=== PATIENT | male | born 1935 | race Caucasian/White ===

== ENCOUNTER → 2016-06-22 13:51 | Outpatient (CLI) | payer MEDICARE ==
[2011-05-13 08:13] VITALS: BMI 25.1
== END | disposition home or self-care (01) ==
LOC: D.CT 13:51
DX: M79.605 Pain in left leg (principal); M79.604 Pain in right leg; I10 Essential (primary) hypertension

== ENCOUNTER 2016-07-05 07:22 | Outpatient (CLI) | payer MEDICARE ==
[~2016-07-05] VITALS: Ht 182.9 cm; Wt 95.0 kg
[2016-07-05] MEDS ORDERED: COZAAR50 MG PO (08:08)
[2016-07-05] MEDS ORDERED: CATAPRES0.1 MG PO (08:08)
[2016-07-05] MEDS ORDERED: ATIVAN0.5 MG PO (08:09)
[2016-07-05] MEDS ORDERED: CORDARONE200 MG PO (08:10)
[2016-07-05 08:17] VITALS: BP 182/76; Ht 182.9 cm; Wt 95.0 kg
[2016-07-05 09:05] LABS: ANION GAP 13.5 mmol/L (8-16); BASOPHILS 0.6 % (0-2); CARBON DIOXIDE 27.9 mmol/L (21.0-32.0); CREATININE - SERUM 1.1 mg/dL (0.6-1.3); HEMATOCRIT 42.4 % (42.0-54.0); HEMOGLOBIN 13.8 g/dL (13.5-17.5); IMMATURE GRANULOCYTES 0.8 % (0-5); LYMPHOCYTES 19.9 % (15-50); MCH 30.9 pg (26.0-34.0); MCHC 32.5 g/dL (31.0-37.0); MCV 94.9 fL (80.0-100.0); MEAN PLATELET VOLUME 10.8 fL (7.4-10.4); MONOCYTES 8.7 % (2-11); PLATELET COUNT 150 10x3/uL (130-400); POTASSIUM - SERUM 4.4 mmol/L (3.5-5.1); RBC 4.47 10x6/uL (4.20-6.10); RDW 13.3 % (11.5-14.5)
[2016-07-05 09:10] LABS: APTT 31.7 SECONDS (22.8-39.4); INR 1.11 (0.85-1.17); PROTIME 14.1 SECONDS (11.6-15.0)
--- NOTE | 2016-07-05 12:12 | NUR ---
1210 ROUNDS BY RADIOLOGY NURSE FOR POST TEACHING.
== END 2016-07-05 15:00 | disposition home or self-care (01) ==
LOC: D.OPS 07:22 → D.RAD 10:00 → D.OPS 15:00
PROVIDERS: Radiology Diagnostic Radiology
DX: C64.2 Malignant neoplasm of left kidney, except renal pelvis (principal)

== ENCOUNTER → 2016-08-11 16:21 | Outpatient (CLI) | payer MEDICARE ==
[2016-07-05 08:17] VITALS: BMI 28.4
[~2016-08-11 16:21] MED LIST: ATIVAN0.5 MG PO; CATAPRES0.1 MG PO; CORDARONE200 MG PO; COZAAR50 MG PO
== END | disposition home or self-care (01) ==
LOC: D.US 16:21
DX: R10.9 Unspecified abdominal pain (principal)

== ENCOUNTER 2017-11-02 19:06 | Inpatient (IN) | payer MEDICARE ==
[~2017-11-02] VITALS: Ht 188 cm; Wt 64.6 kg
--- NOTE | ~2017-11-02 | EC ---
PATIENT:AMIRA MONTERROSO DATE OF SERVICE: 11/03/17 SEX: M MEDICAL RECORD: [id number] DATE OF : 33 LOCATION:[facility] AGE OF PATIENT: 82 ADMISSION DATE: 11/03/17 REFERRING PHYSICIAN: INTERPRETING PHYSICIAN: TOMA PHAM MD ECHOCARDIOGRAM REPORT ECHO CHARGES 4 ECHO COMPLETE Date: 11/03 CLINICAL DIAGNOSIS: CP, HTN, AFIB ECHOCARDIOGRAPHIC MEASUREMENTS (adult normal given) AC root (d.<3.7cm) 3.2 cm LV Septum d (<1.2 cm> 1.6 cm Valve Excursion 0.7 cm LV Septum (systole) 1.6 cm Left Atria (s.<4.0cm> 4.4 cm LVPW d(<1.2cm) 1.0 cm RV (d.<2.3cm) 3.5 cm LVPW (sytole) 1.1 cm LV diastole(<5.6CM) 5.2 cm MV E-F(>70mm/sec) cm LV systole 4.2 cm LVOT Diameter 2.1 cm MV exc.(>10mm) cm Est.ejection fraction (50-75%) % DOPPLER: LVIT cm/sec A 90 cm/sec E 101 cm/sec LA cm/sec RVSP 37.8 mmHg LVOT 103 cm/sec AOP1/2T m/s Asc. Ao 199 cm/sec RVOT 68 cm/sec RA cm/sec PA 83 cm/sec AV Gradient Peak 15.8 mmHg AV Mean 8.8 mmHg AV Area 2.3 cm MV Gradient Peak 7.7 mmHg MV Mean 2.6 mmHg MV Area cm COMMENTS: Manufacturing Recruiter: Grecia SLOANSO JAYCE Alpine Guide: 1 Dr. Pham TAPE# PACS Pericardial Effusion N DATE OF SERVICE: 11/03/2017 FINDINGS: 1. Left ventricular chamber size is within normal limits. Left ventricular systolic function is normal. Overall ejection fraction estimated 60%. 2. Left atrium is enlarged at 4.4 cm. Right atrium and right ventricular chamber sizes are as well mildly dilated. 3. Valvular structures have normal structure and motion. 4. Doppler interrogation reveals moderate mitral regurgitation, mild tricuspid regurgitation. No other valvular insufficiency or stenosis. Pulmonary systolic ECHOCARDIOGRAM REPORT [id number] AMIRA MONTERROSO pressure is estimated 38 mmHg. 5. No evidence of pericardial effusion or left ventricular thrombus. TRANSINT:[id number] Voice Confirmation ID: [id number] DOCUMENT ID: [id number] TOMA PHAM MD at 1806 CC: [id number] DICTATION DATE: 11/04/17 1053 [place] OPERATOR CORE SAND: 11/04/17 1204 ADM IN [facility] [address] [place] [address]
--- NOTE | ~2017-11-02 | CN ---
PATIENT NAME:AMIRA MONTERROSO MEDICAL RECORD: [id number] : 33 LOCATION:[facility] ADMIT DATE: 11/03/17 ACCOUNT: [id number] CONSULTING PHYSICIAN: TOMA JUNE MD REFERRING PHYSICIAN: GEOVANY GRAY MD DATE OF CONSULTATION: 11/03/2017 CARDIOLOGY CONSULTATION DIAGNOSES: 1. Preoperative evaluation. 2. Abnormal troponin. 3. Colitis. 4. Cholecystitis. HISTORY OF PRESENT ILLNESS: This is a gentleman who presents with a GI etiology pain. No chest pain, no cardiac history. His troponin is mildly elevated. His EKG has no ST-T changes. He has a history of hypertension, for which he is on losartan and a history of atrial fibrillation, for which he is on Cordarone. He has maintained sinus rhythm. PHYSICAL EXAMINATION: GENERAL APPEARANCE: Well-nourished, well-developed, appears stated age. Level of distress, comfortable. PSYCHIATRIC: Mental status, alert, normal affect. Orientation, oriented to time, place and person. EYES: Lids and conjunctiva, noninjected. No discharge, no pallor. ENT: Lips, teeth, gums, normal dentition. Oropharynx, no cyanosis, no pallor. NECK: Carotid arteries, bilateral normal upstroke, no bruits, no thrills. JUGULAR VEINS: No jugular venous pressure or distention. CERVICAL LYMPH NODES: Nontender, nonenlarged. THYROID: Not enlarged. Nontender. No nodules. LUNGS: Respiratory effort, unlabored. CHEST: Normal curvature. No thoracic deformity. No chest wall tenderness. Percussion, resonant. Auscultation, clear. No wheezes, no rales, no rhonchi. CARDIOVASCULAR: Precordial exam, nondisplaced. No heaves or pericardial thrills. Rate and rhythm, regular. Heart sounds, normal S1, normal S2. No S3, no gallop, no rub. Systolic murmur, not heard. Diastolic murmur, not heard. EXTREMITIES: No cyanosis, no edema. Peripheral pulses, full and equal in all extremities, except as noted. No bruits appreciated. ABDOMEN: Soft, nondistended. Normal aorta. No bruit. Nontender. No masses. Liver, nontender, no hepatomegaly. Spleen, nontender, no splenomegaly. MUSCULOSKELETAL: No joint tenderness. No joint swelling. No erythema. NEUROLOGICAL: Normal gait, normal strength, normal tone. SKIN: Warm and dry. OVERALL IMPRESSION: Minimally elevated troponin with no EKG changes, no cardiac symptomatology. Only history of atrial fibrillation, which he remains in sinus rhythm and history of hypertension, which is controlled on his current medications. At this time, his need for surgery is semi-emergent due to his symptomatology. No other cardiac workup treatment is necessary at this time, proceed with surgery. TRANSINT:[id number] Voice Confirmation ID: [id number] DOCUMENT ID: [id number] CONSULT REPORT [id number] AMIRA MONTERROSO, TOMA MRAMOLEJO at 1642 CC: [id number] DICTATION DATE: 11/03/17 1155 POULTRY FI[employer] SERVICE TECHNICIAN: 11/03/17 1219 ADM IN [facility] [id number] [place] [address]
[2017-11-02] MEDS ORDERED: SYNTHROID50 MCG PO (19:19)
[2017-11-02 19:31] LABS: BASOPHILS 0 % (0-2); EOSINOPHILS 0.1 % (0-7); HEMATOCRIT 34.2 % (42.0-54.0); HEMOGLOBIN 11.5 g/dL (13.5-17.5); IMMATURE GRANULOCYTES 0.5 % (0-5); LYMPHOCYTES 2.7 % (15-50); MCH 31.2 pg (26.0-34.0); MCHC 33.6 g/dL (31.0-37.0); MCV 92.7 fL (80.0-100.0); MONOCYTES 4.6 % (2-11); NEUTROPHILS 92.1 % (40-80); RBC 3.69 10x6/uL (4.20-6.10); RDW 13.4 % (11.5-14.5); WBC 7.8 10x3/uL (4.8-10.8)
[2017-11-02 19:43] LABS: PLATELET COUNT 118 10x3/uL (130-400)
[2017-11-02 19:48] LABS: ALBUMIN 2.8 g/dL (3.4-5.0); ALKALINE PHOSPHATASE 82 U/L (46-116); ALT (SGPT) 21 U/L (10-68); BILIRUBIN - TOTAL 1.17 mg/dL (0.2-1.3); CALC OSMOLALITY 279 mosm/kg (275-300); CALCIUM 8.2 mg/dL (8.5-10.1); CARBON DIOXIDE 23.4 mmol/L (21.0-32.0); CHLORIDE - SERUM 101 mmol/L (98-107); CREATININE - SERUM 1.6 mg/dL (0.6-1.3); POTASSIUM - SERUM 3.3 mmol/L (3.5-5.1); PROTEIN - SERUM 6.3 g/dL (6.4-8.2); SODIUM 134 mmol/L (136-145); UREA NITROGEN 35 mg/dL (7-18); eGFR NON AFRICAN AMERICAN 44 mL/min (90-120)
[2017-11-02 19:52] LABS: GLUCOSE 178 mg/dL (74-106)
[2017-11-02 20:03] LABS: CKMB 2.2 U/L (0.0-3.6); CREATINE KINASE 298 UL (21-232)
[2017-11-02 20:04] LABS: TROPONIN-I 1.337 ng/mL (0.000-0.060)
[2017-11-02 20:39] LABS: INR 1.45 (0.85-1.17); PROTIME 17.1 SECONDS (11.6-15.0)
[2017-11-02 20:40] LABS: APPEARANCE CLEAR (CLEAR); BILIRUBIN NEGATIVE (NEGATIVE); COLOR YELLOW (YELLOW); GLUCOSE NEGATIVE (NEGATIVE); KETONE NEGATIVE (NEGATIVE); NITRITE NEGATIVE (NEGATIVE); PROTEIN NEGATIVE (NEGATIVE); SPECIFIC GRAVITY 1.015 (1.005-1.020); UROBILINOGEN NORMAL (NORMAL)
[2017-11-02 21:23] VITALS: BP 99/50
[2017-11-02 22:54] VITALS: BP 117/51
[2017-11-02 23:07] VITALS: BP 111/53
[2017-11-03 02:57] VITALS: BP 143/72; BMI 25.4
[2017-11-03 10:24] LABS: BASOPHILS 0.2 % (0-2); EOSINOPHILS 0.2 % (0-7); HEMATOCRIT 31.8 % (42.0-54.0); HEMOGLOBIN 10.7 g/dL (13.5-17.5); IMMATURE GRANULOCYTES 0.4 % (0-5); LYMPHOCYTES 3.1 % (15-50); MCH 31.3 pg (26.0-34.0); MCHC 33.6 g/dL (31.0-37.0); MEAN PLATELET VOLUME 10.6 fL (7.4-10.4); MONOCYTES 10.5 % (2-11); NEUTROPHILS 85.6 % (40-80); PLATELET COUNT 109 10x3/uL (130-400); RBC 3.42 10x6/uL (4.20-6.10); RDW 13.6 % (11.5-14.5)
[2017-11-03 10:29] LABS: WBC 4.8 10x3/uL (4.8-10.8)
[2017-11-03 10:44] LABS: ALBUMIN 2.5 g/dL (3.4-5.0); ANION GAP 8.8 mmol/L (8-16); BILIRUBIN - TOTAL 0.57 mg/dL (0.2-1.3); CALCIUM 7.8 mg/dL (8.5-10.1); CARBON DIOXIDE 27.4 mmol/L (21.0-32.0); POTASSIUM - SERUM 3.2 mmol/L (3.5-5.1); PROTEIN - SERUM 5.9 g/dL (6.4-8.2)
[2017-11-03 10:45] LABS: CREATININE - SERUM 1.1 mg/dL (0.6-1.3)
[2017-11-03 12:36] LABS: CKMB 3.4 U/L (0.0-3.6)
[2017-11-03 12:37] LABS: CREATINE KINASE 531 UL (21-232); TROPONIN-I 0.409 ng/mL (0.000-0.060)
[2017-11-03 13:19] LABS: % SATURATION 11 % (15-55); IRON 19 ug/dl (35-150); TOTAL IRON BIND CAPACITY 170 ug/dl (260-445); UNSAT IRON BIND CAPACITY 151 ug/dl (150-375)
[2017-11-03 13:33] LABS: THYROID STIMULATING HORMONE 0.42 uIU/mL (0.36-3.74)
[2017-11-03 15:54] LABS: POTASSIUM - SERUM 3.5 mmol/L (3.5-5.1)
[2017-11-03 16:37] LABS: CKMB 4.1 U/L (0.0-3.6); CREATINE KINASE 509 UL (21-232)
[2017-11-03 16:39] LABS: TROPONIN-I 0.276 ng/mL (0.000-0.060)
[2017-11-03 21:00] VITALS: BP 155/63
[2017-11-03 23:16] LABS: CKMB 2.1 U/L (0.0-3.6); CREATINE KINASE 392 UL (21-232); TROPONIN-I 0.273 ng/mL (0.000-0.060)
[2017-11-04 04:00] VITALS: BP 123/64
[2017-11-04 06:22] LABS: BASOPHILS 0.2 % (0-2); EOSINOPHILS 0.2 % (0-7); HEMATOCRIT 31.5 % (42.0-54.0); HEMOGLOBIN 10.3 g/dL (13.5-17.5); IMMATURE GRANULOCYTES 0.9 % (0-5); LYMPHOCYTES 8.8 % (15-50); MCH 30.7 pg (26.0-34.0); MCHC 32.7 g/dL (31.0-37.0); MCV 93.8 fL (80.0-100.0); MEAN PLATELET VOLUME 10.6 fL (7.4-10.4); MONOCYTES 11.8 % (2-11); NEUTROPHILS 78.1 % (40-80); PLATELET COUNT 120 10x3/uL (130-400); RBC 3.36 10x6/uL (4.20-6.10); RDW 13.6 % (11.5-14.5); WBC 4.7 10x3/uL (4.8-10.8)
[2017-11-04 06:28] LABS: CALCIUM 7.6 mg/dL (8.5-10.1); CARBON DIOXIDE 26.5 mmol/L (21.0-32.0); CREATININE - SERUM 1.1 mg/dL (0.6-1.3); POTASSIUM - SERUM 3.5 mmol/L (3.5-5.1)
[2017-11-04 08:28] VITALS: BP 113/74
[2017-11-04 13:18] VITALS: BP 146/65
[2017-11-04 16:08] VITALS: BP 152/63
[2017-11-04 20:00] VITALS: BP 162/67
[2017-11-05] VITALS: BP 137/82
[2017-11-05 04:00] VITALS: BP 134/59
[2017-11-05 06:24] LABS: BASOPHILS 0 % (0-2); EOSINOPHILS 0 % (0-7); HEMATOCRIT 30.8 % (42.0-54.0); HEMOGLOBIN 10.2 g/dL (13.5-17.5); IMMATURE GRANULOCYTES 1.9 % (0-5); LYMPHOCYTES 5.8 % (15-50); MCH 30.4 pg (26.0-34.0); MCHC 33.1 g/dL (31.0-37.0); MCV 91.9 fL (80.0-100.0); MEAN PLATELET VOLUME 10.5 fL (7.4-10.4); MONOCYTES 9.1 % (2-11); NEUTROPHILS 83.2 % (40-80); PLATELET COUNT 130 10x3/uL (130-400); RBC 3.35 10x6/uL (4.20-6.10); RDW 13.5 % (11.5-14.5)
[2017-11-05 06:39] LABS: WBC 6.2 10x3/uL (4.8-10.8)
[2017-11-05 07:06] LABS: ALBUMIN 2.4 g/dL (3.4-5.0); ALKALINE PHOSPHATASE 65 U/L (46-116); BILIRUBIN - TOTAL 0.53 mg/dL (0.2-1.3); CALC OSMOLALITY 279 mosm/kg (275-300); CALCIUM 7.4 mg/dL (8.5-10.1); CARBON DIOXIDE 23.3 mmol/L (21.0-32.0); CHLORIDE - SERUM 104 mmol/L (98-107); GLUCOSE 148 mg/dL (74-106); POTASSIUM - SERUM 3.3 mmol/L (3.5-5.1); PROTEIN - SERUM 5.1 g/dL (6.4-8.2); SODIUM 137 mmol/L (136-145); UREA NITROGEN 20 mg/dL (7-18); eGFR NON AFRICAN AMERICAN 76 mL/min (90-120)
[2017-11-05 07:09] LABS: ALT (SGPT) 62 U/L (10-68)
[2017-11-05 07:59] VITALS: BP 148/64
[2017-11-05 16:05] VITALS: BP 120/45
[2017-11-05 20:56] VITALS: BP 146/58
[2017-11-06 00:46] VITALS: BP 140/66
[2017-11-06 04:55] VITALS: BP 168/75
[2017-11-06 05:01] LABS: BASOPHILS 0 % (0-2); EOSINOPHILS 0.2 % (0-7); HEMATOCRIT 31.5 % (42.0-54.0); HEMOGLOBIN 10.5 g/dL (13.5-17.5); IMMATURE GRANULOCYTES 2.3 % (0-5); MCH 30.6 pg (26.0-34.0); MCHC 33.3 g/dL (31.0-37.0); MCV 91.8 fL (80.0-100.0); MEAN PLATELET VOLUME 10.3 fL (7.4-10.4); MONOCYTES 11.9 % (2-11); NEUTROPHILS 78.6 % (40-80); PLATELET COUNT 135 10x3/uL (130-400); RBC 3.43 10x6/uL (4.20-6.10); RDW 13.8 % (11.5-14.5)
[2017-11-06 05:12] LABS: WBC 8.3 10x3/uL (4.8-10.8)
[2017-11-06 05:29] LABS: ALBUMIN 2.4 g/dL (3.4-5.0); ALKALINE PHOSPHATASE 64 U/L (46-116); ALT (SGPT) 64 U/L (10-68); BILIRUBIN - TOTAL 0.76 mg/dL (0.2-1.3); CALC OSMOLALITY 271 mosm/kg (275-300); CARBON DIOXIDE 26.2 mmol/L (21.0-32.0); CHLORIDE - SERUM 103 mmol/L (98-107); CREATININE - SERUM 0.9 mg/dL (0.6-1.3); GLUCOSE 109 mg/dL (74-106); PROTEIN - SERUM 5.9 g/dL (6.4-8.2); SODIUM 135 mmol/L (136-145); UREA NITROGEN 16 mg/dL (7-18); eGFR NON AFRICAN AMERICAN 85 mL/min (90-120)
[2017-11-06 05:30] LABS: POTASSIUM - SERUM 4.4 mmol/L (3.5-5.1)
[2017-11-06 08:49] VITALS: BP 162/69
[2017-11-06 20:26] VITALS: BP 142/50
[2017-11-07 04:49] VITALS: BP 166/74
[2017-11-07 05:02] LABS: BASOPHILS 0 % (0-2); EOSINOPHILS 0.5 % (0-7); HEMOGLOBIN 9.9 g/dL (13.5-17.5); IMMATURE GRANULOCYTES 1.6 % (0-5); LYMPHOCYTES 7.6 % (15-50); MCH 30.2 pg (26.0-34.0); MCV 91.5 fL (80.0-100.0); MEAN PLATELET VOLUME 10.4 fL (7.4-10.4); MONOCYTES 8.4 % (2-11); NEUTROPHILS 81.9 % (40-80); RBC 3.28 10x6/uL (4.20-6.10); RDW 13.7 % (11.5-14.5); WBC 8.1 10x3/uL (4.8-10.8)
[2017-11-07 05:05] LABS: INR 1.27 (0.85-1.17); PLATELET COUNT 167 10x3/uL (130-400); PROTIME 15.4 SECONDS (11.6-15.0)
[2017-11-07 05:11] LABS: ALBUMIN 2.3 g/dL (3.4-5.0); ALKALINE PHOSPHATASE 64 U/L (46-116); ALT (SGPT) 57 U/L (10-68); BILIRUBIN - TOTAL 0.65 mg/dL (0.2-1.3); CALC OSMOLALITY 282 mosm/kg (275-300); CALCIUM 7.8 mg/dL (8.5-10.1); CARBON DIOXIDE 27.6 mmol/L (21.0-32.0); CHLORIDE - SERUM 106 mmol/L (98-107); CREATININE - SERUM 0.8 mg/dL (0.6-1.3); GLUCOSE 96 mg/dL (74-106); PROTEIN - SERUM 5.6 g/dL (6.4-8.2); SODIUM 142 mmol/L (136-145); UREA NITROGEN 12 mg/dL (7-18); eGFR NON AFRICAN AMERICAN > 90 mL/min (90-120)
[2017-11-07 05:12] LABS: POTASSIUM - SERUM 3.1 mmol/L (3.5-5.1)
[2017-11-07 09:11] VITALS: BP 120/66
[2017-11-07 12:18] VITALS: BP 117/76
[2017-11-07 14:18] LABS: EHRLICHIA CHAFF IGG Negative (Neg:<1:64); EHRLICHIA CHAFF IGM Negative (Neg:<1:20); HGE IGG TITER Negative (Neg:<1:64); HGE IGM TITER Negative (Neg:<1:20)
[2017-11-07 18:53] VITALS: BP 90/62
[2017-11-07 23:44] VITALS: BP 164/67
[2017-11-08 02:54] VITALS: BP 184/84
[2017-11-08 05:12] LABS: BASOPHILS 0.1 % (0-2); EOSINOPHILS 0.4 % (0-7); HEMATOCRIT 29.8 % (42.0-54.0); HEMOGLOBIN 9.8 g/dL (13.5-17.5); IMMATURE GRANULOCYTES 1.6 % (0-5); LYMPHOCYTES 5.5 % (15-50); MCH 30.5 pg (26.0-34.0); MCHC 32.9 g/dL (31.0-37.0); MCV 92.8 fL (80.0-100.0); MONOCYTES 7.1 % (2-11); NEUTROPHILS 85.3 % (40-80); RBC 3.21 10x6/uL (4.20-6.10); RDW 13.8 % (11.5-14.5); WBC 10.1 10x3/uL (4.8-10.8)
[2017-11-08 05:13] LABS: PLATELET COUNT 202 10x3/uL (130-400)
[2017-11-08 05:20] LABS: GLUCOSE 92 mg/dL (74-106)
[2017-11-08 05:21] LABS: ALBUMIN 2.3 g/dL (3.4-5.0); ALKALINE PHOSPHATASE 71 U/L (46-116); ALT (SGPT) 53 U/L (10-68); BILIRUBIN - TOTAL 0.58 mg/dL (0.2-1.3); CALC OSMOLALITY 280 mosm/kg (275-300); CALCIUM 7.9 mg/dL (8.5-10.1); CARBON DIOXIDE 26.6 mmol/L (21.0-32.0); CHLORIDE - SERUM 105 mmol/L (98-107); CREATININE - SERUM 0.9 mg/dL (0.6-1.3); POTASSIUM - SERUM 3.6 mmol/L (3.5-5.1); PROTEIN - SERUM 5.5 g/dL (6.4-8.2); SODIUM 141 mmol/L (136-145); UREA NITROGEN 13 mg/dL (7-18); eGFR NON AFRICAN AMERICAN 85 mL/min (90-120)
[2017-11-08 08:32] VITALS: BP 153/48
[2017-11-08 11:03] VITALS: Ht 188 cm; Wt 64.6 kg
[2017-11-08 17:38] VITALS: BP 148/41
[2017-11-08 20:00] VITALS: BP 124/78
[2017-11-09] VITALS: BP 128/77
[2017-11-09 05:20] LABS: BASOPHILS 0.1 % (0-2); EOSINOPHILS 0.7 % (0-7); HEMATOCRIT 30.5 % (42.0-54.0); IMMATURE GRANULOCYTES 2.1 % (0-5); LYMPHOCYTES 6.6 % (15-50); MCH 30.4 pg (26.0-34.0); MCHC 32.8 g/dL (31.0-37.0); MCV 92.7 fL (80.0-100.0); MEAN PLATELET VOLUME 9.8 fL (7.4-10.4); MONOCYTES 7.3 % (2-11); NEUTROPHILS 83.2 % (40-80); PLATELET COUNT 235 10x3/uL (130-400); RBC 3.29 10x6/uL (4.20-6.10); WBC 9.6 10x3/uL (4.8-10.8)
[2017-11-09 05:51] LABS: ALBUMIN 2.4 g/dL (3.4-5.0); ALKALINE PHOSPHATASE 75 U/L (46-116); ALT (SGPT) 49 U/L (10-68); BILIRUBIN - TOTAL 0.67 mg/dL (0.2-1.3); CALC OSMOLALITY 278 mosm/kg (275-300); CALCIUM 8.3 mg/dL (8.5-10.1); CARBON DIOXIDE 25.9 mmol/L (21.0-32.0); CHLORIDE - SERUM 106 mmol/L (98-107); CREATININE - SERUM 0.8 mg/dL (0.6-1.3); GLUCOSE 89 mg/dL (74-106); POTASSIUM - SERUM 3.8 mmol/L (3.5-5.1); PROTEIN - SERUM 5.8 g/dL (6.4-8.2); SODIUM 141 mmol/L (136-145); UREA NITROGEN 11 mg/dL (7-18); eGFR NON AFRICAN AMERICAN > 90 mL/min (90-120)
[2017-11-09 09:33] VITALS: BP 121/75; BP 155/58
[2017-11-09 14:24] VITALS: BP 153/71
[2017-11-09 20:00] VITALS: BP 129/46
[2017-11-10 04:00] VITALS: BP 144/60
[2017-11-10 06:05] LABS: BASOPHILS 0.1 % (0-2); EOSINOPHILS 0 % (0-7); HEMATOCRIT 31.4 % (42.0-54.0); HEMOGLOBIN 10.1 g/dL (13.5-17.5); LYMPHOCYTES 3.1 % (15-50); MCH 30.2 pg (26.0-34.0); MCHC 32.2 g/dL (31.0-37.0); MEAN PLATELET VOLUME 9.8 fL (7.4-10.4); MONOCYTES 2.3 % (2-11); NEUTROPHILS 93.5 % (40-80); PLATELET COUNT 276 10x3/uL (130-400); RBC 3.34 10x6/uL (4.20-6.10)
[2017-11-10 06:15] LABS: WBC 18.7 10x3/uL (4.8-10.8)
[2017-11-10 06:23] LABS: ALBUMIN 2.3 g/dL (3.4-5.0); ALKALINE PHOSPHATASE 73 U/L (46-116); BILIRUBIN - DIRECT 0.18 mg/dL (0.00-0.30); BILIRUBIN - INDIRECT 0.51 mg/dL (0.00-1.00); BILIRUBIN - TOTAL 0.69 mg/dL (0.2-1.3); CALCIUM 8.1 mg/dL (8.5-10.1); CARBON DIOXIDE 27.2 mmol/L (21.0-32.0); CHLORIDE - SERUM 104 mmol/L (98-107); CREATININE - SERUM 0.9 mg/dL (0.6-1.3); MAGNESIUM - SERUM 2.3 mg/dL (1.8-2.4); POTASSIUM - SERUM 4.1 mmol/L (3.5-5.1); PROTEIN - SERUM 5.8 g/dL (6.4-8.2); SODIUM 138 mmol/L (136-145); eGFR NON AFRICAN AMERICAN 85 mL/min (90-120)
[2017-11-10 06:24] LABS: ALT (SGPT) 71 U/L (10-68); CALC OSMOLALITY 279 mosm/kg (275-300); GLUCOSE 155 mg/dL (74-106); UREA NITROGEN 16 mg/dL (7-18)
[2017-11-10 08:48] VITALS: BP 149/61
[2017-11-10 13:07] LABS: APPEARANCE CLEAR (CLEAR); BILIRUBIN NEGATIVE (NEGATIVE); COLOR YELLOW (YELLOW); GLUCOSE NEGATIVE (NEGATIVE); KETONE NEGATIVE (NEGATIVE); NITRITE NEGATIVE (NEGATIVE); PROTEIN NEGATIVE (NEGATIVE); SPECIFIC GRAVITY 1.005 (1.005-1.020); UROBILINOGEN NORMAL (NORMAL)
[2017-11-10 20:00] VITALS: BP 159/54
[2017-11-10 20:08] LABS: OVA + PARASITE EXAM Final report (())
[2017-11-11] VITALS: BP 164/70
[2017-11-11 04:00] VITALS: BP 145/62
[2017-11-11 08:37] VITALS: BP 167/67
[2017-11-11] MEDS ORDERED: HYDROCODON-ACE1 EAC7 PO (09:46)
[2017-11-11] MEDS ORDERED: LEVAQUIN500 MG PO (09:47)
[2017-11-11 11:55] LABS: BASOPHILS 0.1 % (0-2); EOSINOPHILS 0.3 % (0-7); HEMATOCRIT 33.2 % (42.0-54.0); HEMOGLOBIN 10.5 g/dL (13.5-17.5); IMMATURE GRANULOCYTES 1.7 % (0-5); LYMPHOCYTES 4.1 % (15-50); MCH 30.3 pg (26.0-34.0); MCHC 31.6 g/dL (31.0-37.0); MEAN PLATELET VOLUME 9.5 fL (7.4-10.4); NEUTROPHILS 86.8 % (40-80); PLATELET COUNT 285 10x3/uL (130-400); RBC 3.46 10x6/uL (4.20-6.10); RDW 14.2 % (11.5-14.5)
[2017-11-11 11:56] LABS: WBC 13.2 10x3/uL (4.8-10.8)
[2017-11-11] MEDS ORDERED: FLAGYL500 MG PO (13:06)
[2017-11-11] MEDS ORDERED: LEVAQUIN750 MG PO (13:06)
[2017-11-11] MEDS ORDERED: FLOMAX0.4 MG PO (13:09)
== END 2017-11-11 14:42 | disposition home or self-care (01) | DRG 418 ==
LOC: D.ER 19:06 → D.MS 11-03 00:54
PROVIDERS: Family Medicine; Internal Medicine Gastroenterology; Internal Medicine Hematology & Oncology; Internal Medicine Nephrology; Surgery
PROC: 0DBN8ZZ Excision of Sigmoid Colon, Via Natural or Artificial Opening Endoscopic (ICD-10-PCS; 2017-11-07)
PROC: 0FT44ZZ Resection of Gallbladder, Percutaneous Endoscopic Approach (ICD-10-PCS; principal; 2017-11-09 10:53)
DX: K80.00 Calculus of gallbladder with acute cholecystitis without obstruction (principal); N39.0 Urinary tract infection, site not specified; K57.30 Diverticulosis of large intestine without perforation or abscess without bleeding; K52.9 Noninfective gastroenteritis and colitis, unspecified; N28.1 Cyst of kidney, acquired; I10 Essential (primary) hypertension; I48.91 Unspecified atrial fibrillation; G47.33 Obstructive sleep apnea (adult) (pediatric); D69.6 Thrombocytopenia, unspecified; D64.9 Anemia, unspecified; K64.8 Other hemorrhoids; E87.6 Hypokalemia; N40.1 Benign prostatic hyperplasia with lower urinary tract symptoms; R33.8 Other retention of urine; E86.0 Dehydration; Z85.53 Personal history of malignant neoplasm of renal pelvis

== ENCOUNTER → 2018-07-31 10:48 | Outpatient (CLI) | payer MEDICARE ==
[2017-11-08 11:03] VITALS: BMI 25.6
[~2018-07-31 10:48] MED LIST changes: +FLAGYL500 MG PO; +FLOMAX0.4 MG PO; +HYDROCODON-ACE1 EAC7 PO; +LEVAQUIN500 MG PO; +LEVAQUIN750 MG PO; +SYNTHROID50 MCG PO
== END | disposition home or self-care (01) ==
LOC: D.CT 10:48
PROVIDERS: ATTEND General Practice
DX: N28.89 Other specified disorders of kidney and ureter (principal)